=== PATIENT | male | born 1980 | race Caucasian/White ===

== ENCOUNTER 2019-05-12 02:51 | Emergency (ER) | payer BC, OTHER ==
[2019-05-12] MEDS ORDERED: Bacitracin 1 PK ONE (03:09)
[2019-05-12] MEDS ORDERED: Adacel (T-DAP) 0.5 ML SYRINGE ONE (03:09)
== END 2019-05-12 03:28 | disposition home or self-care (01) ==
LOC: ERS 02:51
DX: T24.202A Burn of second degree of unspecified site of left lower limb, except ankle and foot, initial encounter (principal); X02.0XXA Exposure to flames in controlled fire in building or structure, initial encounter
CPT/HCPCS: 16020; 90471; 90715

== ENCOUNTER 2019-10-13 17:30 | Outpatient (CLI) | payer OTHER | END 2019-10-13 17:31 | disposition home or self-care (01) | LOC: SLEEPLAB 17:30 | PROVIDERS: ATTEND Internal Medicine Critical Care Medicine | DX: G47.33 Obstructive sleep apnea (adult) (pediatric) (principal); R53.83 Other fatigue | CPT/HCPCS: 95801 ==